=== PATIENT | male | born 1940 | race Caucasian/White ===

== ENCOUNTER 2025-09-13 14:03 | Emergency (ER) | payer MEDICARE ==
[~2025-09-13] VITALS: Ht 165.1 cm; Wt 77.6 kg
--- NOTE | 2025-09-13 17:07 | ERN ---
General Chief Complaint: Mechanical Fall Stated Complaint: RT ARM PAIN, FALL YESTERDAY Time Seen by MD: 14:06 Time Seen by Midlevel: 14:06 Source: patient History of Present Illness Initial Comments The patient is an 85-year-old male presenting to the emergency department with pain to his right forearm. Patient states he accidentally slammed his forearm a nother object and has pain to the area. Denies any deformity or any other symptoms at this time. Allergies: Coded Allergies: No Known Allergies (Unverified Allergy, Unknown, 09/13/25) Past Medical History Past Medical History: Diabetes-Type II, Hypertension Past Surgical History: None ROS Dictation CONSTITUTIONAL: Negative except for HPI HEAD/FACE: Negative except for HPI EENT: Negative except for HPI RESPIRATORY: Negative except for HPI GASTROINTESTINAL/ABDOMINAL: Negative except for HPI GENITOURINARY: Negative except for HPI MUSCULOSKELETAL: Negative except for HPI INTEGUMENTARY: Negative except for HPI NEUROLOGICAL/PSYCH: Negative except for HPI HEMATOLOGIC/LYMPHATIC: Negative except for HPI All Systems Negative, Except as noted above. 13 point review of systems assessed and all negative except for above. Physical Exam Physical Exam Dictation Vital Signs reviewed General Appearance: Alert, oriented x 3, no acute distress, well developed, nourished. Head and Face: non-traumatic. Eyes: PERRL, pink conjunctivas, eyelid no trauma, anterior chamber with arcus senilis. Ears: Pinnas intact and no signs of trauma or erythema ear canals clear and no discharge TM no erythema Nose: No discharge, no bleeding. Oropharynx: Mouth normal, tongue pink, pharynx clear,no erythema, tonsils no exudates, no abscesses noted, mucous membrane moist Neck: Supple, non-tender, no thyromegaly, no masses, no JVD, no bruits Breast:Deferred Chest:No tenderness, no crepitus, no paradoxical movement, no retractions Lungs:Clear, well-ventilated, symmetric, no rales, no wheezing, no rhonchi, no stridor, good breath sounds bilaterally Heart: Regular rate, regular rhythm, no murmur, no gallops Vascular: no peripheral edema, Abdomen: Soft, positive bowel sounds, nondistended, no guarding, nontender, no rebound, no masses no hepatomegaly, no splenomegaly, no Mendes's sign, no hernias. Rectal: Deferred Genital: Deferred Neurological: Normal speech, motor function intact, sensory function intact Musculoskeletal: Neck nontender, full range of motion, back nontender, full range of motion, Extremities: nontender, full range of motion Skin: Color pink, dry, no turgor, no rash, no lacerations, no abrasions, no contusions. Lymphatic: Deferred MDM MDM: Differential diagnosis: Fracture contusion strain There are no social concerns with this patient. Prescription drug management Prescriptions will include: None Medical management and examination interpretation discussions were had by me with other qualified healthcare professionals as indicated for the patient's care. ED Course Orders Procedure Category Date Status Time Forearm 2vws Rt RAD 09/13/25 Resulted 15:21 Vital Signs Date Time Temp Pulse Resp B/P (MAP) Pulse Ox O2 Delivery O2 Flow Rate FiO2 09/13/25 17:22 97.9 88 16 134/74 97 Room Air* 0 21 09/13/25 14:49 97.9 92 16 142/71 97 Room Air* 0 21 09/13/25 14:06 97.5 118 16 162/77 97 Room Air 0 DX & DISP Disposition: Discharge Departure Impression: Primary Impression: Strain of forearm, right Condition: Stable Additional Instructions: Your x-ray does not show any evidence of an acute fracture or dislocation. Referrals: SELF,REFERRAL (PCP) Time of Disposition: 17:07 I have reviewed the case, and I agree with, Diagnosis and Plan I performed the substantive portion of the visit. I have reviewed and personally made and approve the management plan that is documented in the note by myself or the PEDRO. I acknowledge for responsibility for the patient's management plan. SANDRA GAONA PAC Sep 13, 2025 17:07
[2025-09-13 17:22] VITALS: BP 134/74; PULSE 88; RESP 16; TEMP 97.9; O2SAT 97
--- NOTE | 2025-09-13 17:54 | HMCIMG ---
EXAM: CR right Forearm, 2 View. CLINICAL HISTORY: fall COMPARISON: None provided. FINDINGS: BONES: No acute fracture or aggressive appearing osseous lesion. JOINTS: No dislocation. The joint spaces are normal. SOFT TISSUES: The soft tissues are unremarkable. IMPRESSION: No acute osseous abnormality. /Rainier
== END 2025-09-13 17:23 | disposition home or self-care (01) ==
LOC: EDH 14:03
DX: S56.911A Strain of unspecified muscles, fascia and tendons at forearm level, right arm, initial encounter (principal); E11.9 Type 2 diabetes mellitus without complications; I10 Essential (primary) hypertension; W22.8XXA Striking against or struck by other objects, initial encounter; Y93.89 Activity, other specified; Y92.89 Other specified places as the place of occurrence of the external cause; Y99.8 Other external cause status
CPT/HCPCS: 73090; 99283